=== PATIENT | male | born 1970 | race Caucasian/White ===

== ENCOUNTER 2022-06-10 04:46 | Day surgery (SDC) | payer OTHER ==
[2022-06-06 09:22] VITALS: BMI 25.8
[2022-06-10 10:16] VITALS: RESP 18
[2022-06-10 12:38] VITALS: TEMP 98
[2022-06-10 13:02] VITALS: PULSE 47
[2022-06-10 13:16] VITALS: BP 146/77
== END 2022-06-10 13:35 | disposition home or self-care (01) ==
LOC: JASU-ENDO 04:46
PROVIDERS: ATTEND Student in an Organized Health Care Education/Training Program
PROC: 0D5N8ZZ Destruction of Sigmoid Colon, Via Natural or Artificial Opening Endoscopic (ICD-10-PCS; 2022-06-10)
PROC: 3E0H8GC Introduction of Other Therapeutic Substance into Lower GI, Via Natural or Artificial Opening Endoscopic (ICD-10-PCS; 2022-06-10)
PROC: 0D5P8ZZ Destruction of Rectum, Via Natural or Artificial Opening Endoscopic (ICD-10-PCS; principal; 2022-06-10 11:00)
DX: Z12.11 Encounter for screening for malignant neoplasm of colon (principal); D12.5 Benign neoplasm of sigmoid colon; D12.8 Benign neoplasm of rectum
CPT/HCPCS: 88305-TC

== ENCOUNTER 2022-09-30 04:45 | Day surgery (SDC) | payer OTHER ==
[2022-09-29 09:58] VITALS: BMI 25.8
[2022-09-30 09:26] VITALS: TEMP 98
[2022-09-30 09:30] VITALS: RESP 20
[2022-09-30 09:31] VITALS: BP 122/68; PULSE 94
== END 2022-09-30 09:25 | disposition home or self-care (01) ==
LOC: JASU-ENDO 04:45
PROVIDERS: ATTEND Student in an Organized Health Care Education/Training Program
PROC: 0DBP8ZX Excision of Rectum, Via Natural or Artificial Opening Endoscopic, Diagnostic (ICD-10-PCS; principal; 2022-09-30 08:30)
DX: K64.8 Other hemorrhoids (principal); Z86.010 Personal history of colon polyps
CPT/HCPCS: 88305-TC

== ENCOUNTER 2024-02-13 00:28 | Emergency (ER) | payer OTHER ==
[2024-02-13 00:35] VITALS: BP 136/91; PULSE 60; RESP 16; TEMP 98.1; BMI 25.9
[2024-02-13] MEDS ORDERED: METHOCARBAMOL 500 MG TABLET ONE (00:49)
[2024-02-13] MEDS ORDERED: KETOROLAC TROMETHAMINE 60 MG/2 ML VIAL ONE (00:49)
[2024-02-13] MEDS ORDERED: LIDOCAINE 5% TOPICAL PATCH ONE (00:49)
[2024-02-13] MEDS: METHOCARBAMOL 500 MG TABLET PO ONE (00:53)
[2024-02-13] MEDS: KETOROLAC TROMETHAMINE 60 MG/2 ML VIAL IM ONE (00:53)
[2024-02-13] MEDS: LIDOCAINE 5% TOPICAL PATCH TP ONE (00:53)
[2024-02-13] MEDS ORDERED: LIDOCAINE PATCH REMOVAL MC SCH (22:00)
== END 2024-02-13 00:58 | disposition home or self-care (01) ==
LOC: FER 00:28
PROC: 3E0133Z Introduction of Anti-inflammatory into Subcutaneous Tissue, Percutaneous Approach (ICD-10-PCS; principal; 2024-02-13)
DX: M54.2 Cervicalgia (principal); M54.6 Pain in thoracic spine
CPT/HCPCS: 99284-25